=== PATIENT | male | born 1975 | race African-American/Black ===

== ENCOUNTER 2024-04-28 22:51 | Emergency (ER) | payer MEDICAID, SELFPAY ==
--- NOTE | ~2024-04-28 | XR_ITS ---
EXAMINATION: XR CHEST CLINICAL INFORMATION: Status post cardiac arrest COMPARISON: None available. TECHNIQUE: 2 frontal views of the chest with the first at 11:35:50 p.m. on the second at 11:36:39 p.m. FINDINGS: Heart size probably within normal limits given supine nature of the film. Initial film shows a NG tube with its tip at the level of the sharon. An ET tube appears to be place about 7 cm above the sharon. The second radiograph there is no ET tube present in the NG tube has been retracted 1 to 2 cm. There is upper zone redistribution and increased interstitial markings in the upper lobes, left greater than right. No pneumothorax. No large effusions. XR/XR chest 1V IMPRESSION: 1. NG tube with tip at the level of the sharon. 2. Upper zone redistribution and increased interstitial markings in the upper lobes, left greater than right.
--- NOTE | ~2024-04-28 | CT_ITS ---
EXAMINATION: CT HEAD WITHOUT CONTRAST CLINICAL INFORMATION: Altered mental status. Unconscious. COMPARISON: None available. TECHNIQUE: Contiguous axial imaging was performed from the skull base to vertex without intravenous administration of contrast. This CT examination was performed using dose optimization techniques as appropriate, variously including the following: *Automated exposure control *Adjustment of mA and/or kV according to patient size (this includes techniques or standardized protocols for targeted exams where dose is matched to indication/reason for exam; i.e. extremities or head) *Use of iterative reconstruction technique DLP: 801 mGy-cm FINDINGS: Diffuse sulcal effacement is noted. Decrease expected conspicuity of cortical hernández and subcortical white matter noted. The deep hernández matter structures are visualized though with decreased conspicuity from expected visualization. No transforaminal herniation noted. No transtentorial herniation noted. No intracranial hemorrhage or tumors visualized. Bilateral proptosis noted. No significant opacification of the visualized paranasal sinuses, mastoid air cells and middle ear cavities. Partial visualization is made of endotracheal and enteric tubes. 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 Diffuse sulcal effacement is present with diffuse decreased conspicuity of expected hernández-white differentiation. These findings are suspicious for diffuse cerebral edema. No lobar herniation identified. No intracranial hemorrhage. This result was discussed with Fercho Pemberton MD by telephone at 04/29/2024 1:36 AM and it was ascertained that the content and urgency of the report was understood at the time of direct communication.
--- NOTE | ~2024-04-28 | XR_ITS ---
EXAMINATION: XR CHEST CLINICAL INFORMATION: Tube placement COMPARISON: Chest radiograph 04/28/2024 TECHNIQUE: Frontal view of the chest was obtained. FINDINGS: An endotracheal tube terminates 5 cm superior to the sharon. Enteric tube terminates at the gastroesophageal junction. No effusions or pneumothoraces. Mild diffuse vascular indistinctness noted. Mild left base asymmetric airspace opacity is noted. The cardiac silhouette is normal in size. XR/XR chest 1V IMPRESSION: *Endotracheal tube terminating 5 cm superior to the sharon. *Enteric tube terminating at the gastroesophageal junction. *Mild pulmonary vascular congestion. *Mild left upper lung zone asymmetric airspace opacification which may represent asymmetric pulmonary edema. Partial left upper lobe atelectasis could have a similar appearance. This critical result (regarding enteric tube placement) was discussed with Fercho Pemberton MD by telephone at 04/29/2024 2:00 AM and it was ascertained that the content and urgency of the report was understood at the time of direct communication.
[2024-04-28 23:04] VITALS: BP 42/29; PULSE 42
[2024-04-28] MEDS: Norepinephrine Bitartrate/NS 32 MG/250 ML PLAST..BAG IVCONT (23:04)
--- NOTE | 2024-04-28 23:06 | ECG_ITS ---
Test Reason : CARDIAC ARREST Blood Pressure : / mmHG Vent. Rate : 100 BPM Atrial Rate : 100 BPM P-R Int : 120 ms QRS Dur : 190 ms QT Int : 398 ms P-R-T Axes : 000 260 012 degrees QTc Int : 513 ms Sinus rhythm with occasional Premature ventricular complexes Right bundle branch block Abnormal ECG When compared with ECG of 28-APR-2024 22:55, Sinus rhythm has replaced Atrial fibrillation Criteria for Septal infarct are no longer Present Criteria for Lateral infarct are no longer Present Referred By: Fercho Pemberton Electronically Signed By:ISAAC GAFFNEY
--- NOTE | 2024-04-28 23:06 | ED.GENADULT ---
HPI - General Adult General Chief complaint: Cardiac Arrest/CPR Stated complaint: CARDIAC ARREST. DOWN 45 MINS Time Seen by Provider: 04/28/24 23:06 History of Present Illness ED Provider: berna TREVINO narrative: Patient was apparently found by his family unresponsive at home. They had last seen him about 30 minutes prior. He had apparently been complaining about shortness of breath during the day but no other specific symptoms. Fire fighters with the 1st on scene and used an AED which advised to shock. When paramedics arrived the patient was pulseless and in VFib. In route to the hospital the patient received several defibrillations which were refractory. He also received several rounds of epinephrine. The patient was unconscious and unable to give any history. The patient's family arrived at the emergency room. They tell me that he is a smoker and that he may have a history of COPD. He is on no medications. He has not seen a doctor in years. The mother reports that over the past couple of months the patient seems to have had increasing exertional dyspnea. He may have been complaining of shortness of breath earlier today. Related Data Allergies Allergy/AdvReac Type Severity Reaction Status Date / Time amoxicillin [AMOXICILLIN] Allergy Unknown unknown Verified 04/29/24 00:11 acetaminophen [ACETAMINOPHEN] AdvReac Unknown nausea Verified 04/29/24 00:11 Review of Systems Review of Systems: Yes Unobtainable due to mental status PMFSH Social History Social History Advance Directives: No Advance Directives Information Provided: No Physical Exam ED Vital Signs: Vital Signs - 24 hr 04/28/24 23:45 04/29/24 00:04 04/29/24 00:09 Temperature 96.3 F L Pulse Rate 62 76 Respiratory Rate 15 Blood Pressure 93/51 L 147/99 H Pulse Oximetry 99 Oxygen Delivery Method Mechanical Ventilation Fraction of Inspired Oxygen 100 04/29/24 00:15 04/29/24 00:20 04/29/24 00:50 Temperature 96.1 F L Pulse Rate 81 105 H Respiratory Rate 15 Blood Pressure 135/85 150/102 H Pulse Oximetry 99 Oxygen Delivery Method Mechanical Ventilation Fraction of Inspired Oxygen 100 04/29/24 01:08 04/29/24 01:18 04/29/24 01:32 Temperature 97.2 F Pulse Rate 102 H 97 104 H Respiratory Rate 20 Blood Pressure 167/110 H 150/106 H 132/93 H Pulse Oximetry 98 Oxygen Delivery Method Mechanical Ventilation Fraction of Inspired Oxygen BMI result Body Mass Index 25.3 Const Other: The patient arrived receiving CPR by a TEO device. He was flaccid. Pupils were large and nonreactive. HENMT Other: The patient has poor dentition but the airway was clear. No facial asymmetry. Eyes Other: Pupils were large and not very reactive. Neck Other: External jugular veins were prominent. Neck was supple. Resp Other: The patient's breath sounds with bag-valve mask ventilation seemed symmetrical. Cardio Other: The patient initially had no heart tones and no pulses. GI Other: Abdomen seemed soft and nontender. Skin Other: Skin was pale and dry Neuro Other: The patient was unresponsive and flaccid. Pupils were dilated and not significantly responsive. Extrem Other: No peripheral edema or signs of trauma. Medications Administered Generic Name Dose Route Start Last Admin Trade Name Freq PRN Reason Stop Dose Admin Sodium Bicarbonate 150 meq/ 1,000 mls @ 200 mls/hr 04/28/24 23:30 04/28/24 23:36 Dextrose IV 200 mls/hr .Q5H DARION Administration Propofol 1,000 mg in 100 mls @ 0 mls/hr 04/28/24 23:30 04/29/24 01:18 Diprivan IVCONT 50 mcg/kg/min .Q0M DARION 24 mls/hr Titration Protocol Per Protocol Midazolam HCl 50 mg in 50 mls @ 2 mls/hr 04/28/24 23:45 04/29/24 00:50 Versed IVCONT 0 mg/hr .Q24H DARION 0 mls/hr Infusion 2 MG/HR Fentanyl 1,000 mcg in 100 mls @ 0 mls/hr 04/28/24 23:45 04/29/24 00:50 Sublimaze/Ns IVCONT 0 mcg/hr .Q0M DARION 0 mls/hr Titration Protocol Per Protocol Discontinued Medications Generic Name Dose Route Start Last Admin Trade Name Freq PRN Reason Stop Dose Admin Atropine Sulfate 1 mg 04/28/24 23:16 04/29/24 00:26 Atropine Sulfate 1 Mg/10 Ml Syringe IVPUSH 04/28/24 23:17 1 mg ONCE ONE Administration Epinephrine 1 mg 04/28/24 23:16 04/29/24 00:27 Epinephrine 1 Mg/10 Ml Syringe IVPUSH 04/28/24 23:17 1 mg ONCE ONE Administration Midazolam HCl 2 mg 04/29/24 00:17 04/29/24 00:19 Midazolam Hcl/Pf 2 Mg/2 Ml Vial IVPUSH 04/29/24 00:18 2 mg ONCE ONE Administration Procedures Intubation Intubation Type:: Endotracheal Tube Insertion Intubation Date:: 04/28/24 sedative: none Laryngoscope: fiber optic video scope ET Tube Size: 7.5 ET Tube Uncuffed: Yes Tube Secured Location: lips Tube Placement Confirmation: visualized tube passing through cords, equal breath sounds bilaterally and confirmation by capnometry Patient Tolerated Procedure: no complications Intubation Complications: none Additional Comments: ET tube had to be advanced because of placement seen on x-ray. Medical Decision Making Medical Decision Making MDM Narrative: The patient arrived as an [id number] cardiac arrest which was unwitnessed. He had last been seen by family about 30 minutes before he was discovered unresponsive. Family started CPR. First responders had an AED that advised to shock. Paramedics arrived soon after found the patient in VFib. Paramedics administered ACLS care with several attempts at defibrillation and several doses of epinephrine. There was no return of spontaneous circulation prior to arrival in the emergency room. Here the patient has advanced airway device was switched to an ETT. After intubation the patient seemed to have an organized rhythm and pulses. He was hypotensive and bradycardic. He was given atropine and norepinephrine. Initially he lost pulses twice and required additional CPR before his pulses seemed to stabilize. PH was 6.7 any was started on a bicarb drip in addition to the norepinephrine. Ultimately he seemed to be coughing and somewhat bucking the ventilator and so he was given sedation initially with midazolam and fentanyl but later propofol. The norepinephrine had initially been maximized but we were able to cut back on the norepinephrine. The patient's EKGs were bizarre looking and potentially ischemic looking. I suspect that this was probably a primarily cardiac cardiac arrest. I therefore contacted the critical intensive care unit at [facility] and the patient has been accepted in transfer with Dr. Alvarez. The patient's family was here and understands the patient's condition is tenuous. The family understands the patient is being transferred to [facility]. We obtained a CT scan of the brain prior to transfer that shows what may be early signs of hernández-white differentiation consistent with a early anoxic brain injury. I spoke with Dr. Alvarez of the cardiac intensive care unit at [facility]. Lab Data 04/28/24 20:05 04/28/24 20:05 Labs: Lab Results 04/28/24 04/28/24 04/28/24 Range/Units 20:05 23:05 23:13 WBC 12.4 H (4.8-10.8) X10*3/uL RBC 3.99 L (4.60-5.80) X10*6/uL Hgb 12.7 L (14.0-18.0) g/dl Hct 40.2 L (42.0-52.0) % MCV 100.8 H (80.0-98.0) fL MCH 31.8 (27.0-33.0) pg MCHC 31.6 (31.0-36.0) g/dl RDW 13.7 (11.0-16.0) % Plt Count 240 (160-400) X10*3/uL MPV 9.1 L (9.4-12.4) fL Immature Gran % (Auto) Cancelled Neut % (Auto) Cancelled Lymph % (Auto) Cancelled [place] % (Auto) Cancelled Eos % (Auto) Cancelled Baso % (Auto) Cancelled Lymph # (Auto) Cancelled [place] # (Auto) Cancelled Eos # (Auto) Cancelled Baso # (Auto) Cancelled Abs Immat Gran (auto) Cancelled Absolute Neuts (auto) Cancelled Absolute Nucleated RBC 0.020 H (0.0-0.012) X10*3/uL Nucleated RBC % (auto) 0.2 (0.0-0.2) /100WBC Neutrophils % (Manual) 29 L (45-73) % Band Neutrophils % 1 L (3-5) % Lymphocytes % (Manual) 51 H (20-40) % Atypical Lymphs % (Man) 6 (0-6) % Monocytes % (Manual) 5 (2-11) % Eosinophils % (Manual) 4 (0-4) % Metamyelocytes % 3 % Myelocytes % 1 % Abs Neuts (Manual) 3.7 (2.0-8.3) X10*3/uL Lymphocytes # (Manual) 6.3 H (1.2-4.9) X10*3/uL Atyp Lymphs # (Manual) 0.7 x10*3/uL Monocytes # (Manual) 0.6 (0.1-1.2) X10*3/uL Eosinophils # (Manual) 0.5 H (0.0-0.4) X10*3/uL Metamyelocytes # 0.4 X10*3/uL Myelocytes # 0.1 X10*/uL Toxic Vacuolation PRESENT Platelet Estimate NORMAL (NORMAL) Large Platelets PRESENT Plt Morphology Comment NORMAL RBC Morphology NOTED [place] Cells 2+ (3-5) /OIF Hematology Spec Commnt DELAY Hold Purple Top SEE NOTE PT 12.0 (11.1-13.3) SEC INR 1.0 (0.9-1.1) VBG pH 6.72 L* (7.32-7.43) VBG pCO2 99 mmHg VBG pO2 77 mmHg VBG HCO3 13 L (22-26) mmol/L VBG O2 Saturation 74.0 % VBG Base Excess -23.9 mmol/L Sodium 142 (135-145) mmol/L Potassium 3.8 (3.3-5.1) mmol/L Chloride 105 (96-108) mmol/L Carbon Dioxide 16 L (22-29) mmol/L Anion Gap 25 H (12-20) BUN 9 (9-16) mg/dL Creatinine 1.51 H (0.5-1.4) mg/dL Estim Creat Clear Calc TNP Estimated GFR 49 Random Glucose 375 H* (60-115) mg/dL Lactic Acid 13.4 H* (0.5-2.0) mmol/L Calcium 8.3 L (8.4-10.2) mg/dL Magnesium 3.6 H* (1.6-2.6) mg/dL Total Bilirubin 0.1 (0.0-1.0) mg/dL Direct Bilirubin < 0.2 (0.0-0.5) mg/dL AST 178 H (5-37) U/L ALT 242 H (0-40) U/L Alkaline Phosphatase 83 (39-117) U/L Total Creatine Kinase 208 H (38-174) U/L Troponin I High Sens 81.4 H (<3.5-35.0) ng/L B-Natriuretic Peptide 70 (<100) pg/mL Total Protein 5.5 L (6.5-8.0) g/dL Albumin 3.0 L (3.5-5.0) g/dL Lipase 303 H (8-78) U/L Urine Color Urine Appearance Urine pH (5.0-9.0) Ur Specific [place] (1.005-1.025) Urine Protein (Neg-Trace) mg/dL Urine Glucose (UA) (Negative) mg/dL Urine Ketones (Negative) mg/dL Urine Blood (Negative) Urine Nitrite (Negative) Ur Leukocyte Esterase (Negative) Urine RBC (0-2) /HPF Urine WBC (0-5) /HPF Ur Squamous Epith Cells (0-2) /HPF Urine Bacteria (None Seen) Hyaline Casts (0-2) /LPF Urine Opiates Screen (Not Detect) Ur Buprenorphine Scrn (Not Detect) ng/mL Ur Oxycodone Screen (Not Detect) ng/mL Urine Methadone Screen (Not Detect) ng/mL Urine Fentanyl Screen (Not Detect) Ur Barbiturates Screen (Not Detect) Ur Phencyclidine Scrn (Not Detect) Ur Amphetamines Screen (Not Detect) U Benzodiazepines Scrn (Not Detect) Urine Cocaine Screen (Not Detect) U Marijuana (THC) Screen (Not Detect) Ethyl Alcohol 10 mg/dL 04/29/24 Range/Units 00:59 WBC (4.8-10.8) X10*3/uL RBC (4.60-5.80) X10*6/uL Hgb (14.0-18.0) g/dl Hct (42.0-52.0) % MCV (80.0-98.0) fL MCH (27.0-33.0) pg MCHC (31.0-36.0) g/dl RDW (11.0-16.0) % Plt Count (160-400) X10*3/uL MPV (9.4-12.4) fL Immature Gran % (Auto) Neut % (Auto) Lymph % (Auto) [place] % (Auto) Eos % (Auto) Baso % (Auto) Lymph # (Auto) [place] # (Auto) Eos # (Auto) Baso # (Auto) Abs Immat Gran (auto) Absolute Neuts (auto) Absolute Nucleated RBC (0.0-0.012) X10*3/uL Nucleated RBC % (auto) (0.0-0.2) /100WBC Neutrophils % (Manual) (45-73) % Band Neutrophils % (3-5) % Lymphocytes % (Manual) (20-40) % Atypical Lymphs % (Man) (0-6) % Monocytes % (Manual) (2-11) % Eosinophils % (Manual) (0-4) % Metamyelocytes % % Myelocytes % % Abs Neuts (Manual) (2.0-8.3) X10*3/uL Lymphocytes # (Manual) (1.2-4.9) X10*3/uL Atyp Lymphs # (Manual) x10*3/uL Monocytes # (Manual) (0.1-1.2) X10*3/uL Eosinophils # (Manual) (0.0-0.4) X10*3/uL Metamyelocytes # X10*3/uL Myelocytes # X10*/uL Toxic Vacuolation Platelet Estimate (NORMAL) Large Platelets Plt Morphology Comment RBC Morphology Alfred Cells /OIF Hematology Spec Commnt Hold Purple Top PT (11.1-13.3) SEC INR (0.9-1.1) VBG pH (7.32-7.43) VBG pCO2 mmHg VBG pO2 mmHg VBG HCO3 (22-26) mmol/L VBG O2 Saturation % VBG Base Excess mmol/L Sodium (135-145) mmol/L Potassium (3.3-5.1) mmol/L Chloride (96-108) mmol/L Carbon Dioxide (22-29) mmol/L Anion Gap (12-20) BUN (9-16) mg/dL Creatinine (0.5-1.4) mg/dL Estim Creat Clear Calc Estimated GFR Random Glucose (60-115) mg/dL Lactic Acid (0.5-2.0) mmol/L Calcium (8.4-10.2) mg/dL Magnesium (1.6-2.6) mg/dL Total Bilirubin (0.0-1.0) mg/dL Direct Bilirubin (0.0-0.5) mg/dL AST (5-37) U/L ALT (0-40) U/L Alkaline Phosphatase (39-117) U/L Total Creatine Kinase (38-174) U/L Troponin I High Sens (<3.5-35.0) ng/L B-Natriuretic Peptide (<100) pg/mL Total Protein (6.5-8.0) g/dL Albumin (3.5-5.0) g/dL Lipase (8-78) U/L Urine Color Yellow Urine Appearance Clear Urine pH 7.0 (5.0-9.0) Ur Specific [place] 1.010 (1.005-1.025) Urine Protein 300 (3+) H (Neg-Trace) mg/dL Urine Glucose (UA) >=1000 H (Negative) mg/dL Urine Ketones Negative (Negative) mg/dL Urine Blood Large (3+) H (Negative) Urine Nitrite Negative (Negative) Ur Leukocyte Esterase Negative (Negative) Urine RBC 6-10 H (0-2) /HPF Urine WBC 6-10 (0-5) /HPF Ur Squamous Epith Cells 0-2 (0-2) /HPF Urine Bacteria 1+ (None Seen) Hyaline Casts 3-5 (0-2) /LPF Urine Opiates Screen Not Detected (Not Detect) Ur Buprenorphine Scrn Not Detected (Not Detect) ng/mL Ur Oxycodone Screen Not Detected (Not Detect) ng/mL Urine Methadone Screen Not Detected (Not Detect) ng/mL Urine Fentanyl Screen Not Detected (Not Detect) Ur Barbiturates Screen Not Detected (Not Detect) Ur Phencyclidine Scrn Not Detected (Not Detect) Ur Amphetamines Screen Not Detected (Not Detect) U Benzodiazepines Scrn Not Detected (Not Detect) Urine Cocaine Screen POSITIVE H (Not Detect) U Marijuana (THC) Screen POSITIVE H (Not Detect) Ethyl Alcohol mg/dL Critical Care Time Critical Care Time Critical Care Time: Yes Total Critical Care Time: 75 Attestation: The patient was critically ill with a high probability of imminent or life-threatening deterioration. ?I spent greater than 30 minutes of discontinuous time evaluating the patient, delivering critical care at the bedside, discussing evaluating data with consultants. ?Critical care time does not include time spent performing separately billable procedures or teaching. ?Time spent performing critical care with 75 minutes. Discharge Plan Discharge Clinical Impression: Cardiac arrest Patient Disposition: [facility] Transfer Details: [facility] Cardiac Intensive Care unit Print Language: [place]
[2024-04-28 23:09] VITALS: BP 95/57; PULSE 75
[2024-04-28 23:16] VITALS: BP 55/30; PULSE 67
[2024-04-28 23:18] LABS: Hematocrit 40.2 % (42.0-52.0); Hemoglobin 12.7 g/dl (14.0-18.0); Mean Corpuscular HGB Conc 31.6 g/dl (31.0-36.0); Mean Corpuscular Hemoglobin 31.8 pg (27.0-33.0); Mean Corpuscular Volume 100.8 fL (80.0-98.0); Mean Platelet Volume 9.1 fL (9.4-12.4); NRBC Pct Auto 0.2 /100WBC (0.0-0.2); Platelet Count 240 X10*3/uL (160-400); Red Blood Count 3.99 X10*6/uL (4.60-5.80); Red Cell Distribution Width 13.7 % (11.0-16.0); White Blood Count 12.4 X10*3/uL (4.8-10.8)
[2024-04-28 23:22] VITALS: BP 163/115; PULSE 104
[2024-04-28 23:25] VITALS: BP 113/72; PULSE 74
[2024-04-28 23:25] LABS: VBG Base Excess -23.9 mmol/L; VBG HCO3 13 mmol/L (22-26); VBG pCO2 99 mmHg; VBG pH 6.72 (7.32-7.43); VBG pO2 77 mmHg
[2024-04-28 23:32] LABS: Venous Blood Gas Refer to POC result
[2024-04-28 23:33] LABS: Ethanol 10 mg/dL
[2024-04-28] MEDS: Sodium Bicarbonate 8.4% 150 MEQ in Dextrose 5 % 850 ML 200 MEQ IV (23:36)
--- NOTE | 2024-04-28 23:38 | ECG_ITS ---
Test Reason : CARDIAC ARREST Blood Pressure : / mmHG Vent. Rate : 071 BPM Atrial Rate : 071 BPM P-R Int : 108 ms QRS Dur : 168 ms QT Int : 426 ms P-R-T Axes : -25 267 -14 degrees QTc Int : 462 ms Junctional rhythm with Premature ventricular complexes Right bundle branch block Diffuse ST changes- consider ischemia or metabolic derangment. Abnormal ECG When compared with ECG of 28-APR-2024 23:20, QT has shortened Referred By: Fercho Pemberton Electronically Signed By:Carlos Poole
[2024-04-28 23:41] LABS: Delay - Hematology DELAY
[2024-04-28 23:43] LABS: Troponin-I High Sensitivity 81.4 ng/L (<3.5-35.0)
[2024-04-28 23:45] VITALS: BP 93/51; PULSE 62
[2024-04-28] MEDS: Midazolam HCl/NS 50 MG/50 ML PLAST..BAG IVCONT (23:45)
[2024-04-28] MEDS: fentaNYL citrate/NS 1,000 MCG/100 ML PLAST..BAG 2.5 MCG IVCONT (23:47)
[2024-04-28 23:49] LABS: Alanine Aminotransferase 242 U/L (0-40); Alkaline Phosphatase 83 U/L (39-117); Anion Gap 25 (12-20); Aspartate Amino Transferase 178 U/L (5-37); Bilirubin Direct < 0.2 mg/dL (0.0-0.5); Bilirubin Total 0.1 mg/dL (0.0-1.0); Blood Urea Nitrogen 9 mg/dL (9-16); Calcium 8.3 mg/dL (8.4-10.2); Carbon Dioxide 16 mmol/L (22-29); Chloride 105 mmol/L (96-108); Estimated Glomerular Filt Rate 49; Glucose Random 375 mg/dL (60-115); Lipase 303 U/L (8-78); Magnesium 3.6 mg/dL (1.6-2.6); Potassium 3.8 mmol/L (3.3-5.1); Sodium 142 mmol/L (135-145); Total Protein 5.5 g/dL (6.5-8.0)
[2024-04-28 23:50] LABS: Lactic Acid 13.4 mmol/L (0.5-2.0)
[2024-04-29] VITALS (12 sets, daily range): BP systolic 52–182; BP diastolic 26–110; PULSE 66–111; RESP 15–20; TEMP 35.6–36.4; O2SAT 98–99; BMI 29.4; BMI 25.3
--- NOTE | 2024-04-29 00:05 | PC.NURSE ---
0002- NG TUBE PLACED, PLACEMENT CONFIRMED BY 2 RN AUSCULTATION. MD AWARE FOR NEED FOR XR. 0004 NOREPI DRIP TITRATE TO 0.1MCG/KG/MIN. VITALS DOCUMENTED.
[2024-04-29] MEDS: Midazolam HCl/PF 2 MG/2 ML VIAL IVPUSH (00:19)
--- NOTE | 2024-04-29 00:19 | PC.NURSE ---
2MG IVP VERSED GIVEN PT CONTINUES TO TYLER VENT.
[2024-04-29] MEDS: Atropine Sulfate 1 MG/10 ML SYRINGE IVPUSH (00:26)
[2024-04-29] MEDS: EPINEPHrine 1 MG/10 ML SYRINGE IVPUSH (00:27)
[2024-04-29 00:32] LABS: Atypical Lymph Absolute Manual 0.7 x10*3/uL; Atypical Lymphs Percent Manual 6 % (0-6); Band Neutrophils Percent 1 % (3-5); Eosinophils Absolute Manual 0.5 X10*3/uL (0.0-0.4); Eosinophils Percent Manual 4 % (0-4); Lymphocytes Absolute Manual 6.3 X10*3/uL (1.2-4.9); Lymphocytes Percent Manual 51 % (20-40); Metamyelocytes Absolute 0.4 X10*3/uL; Metamyelocytes Percent 3 %; Monocytes Absolute Manual 0.6 X10*3/uL (0.1-1.2); Monocytes Percent Manual 5 % (2-11); Myelocytes Absolute 0.1 X10*/uL; Myelocytes Percent 1 %; Neutrophils Absolute Manual 3.7 X10*3/uL (2.0-8.3); Neutrophils Percent Manual 29 % (45-73); RBC Morphology NOTED
[2024-04-29 00:33] LABS: Large Platelet PRESENT; Platelet Estimate NORMAL (NORMAL); Platelet Morphology Comment NORMAL; Toxic Vacuolation PRESENT
[2024-04-29 00:34] LABS: Burr Cells 2+ (3-5) /OIF
[2024-04-29 00:36] LABS: B Type Natriuretic Peptide 70 pg/mL (<100)
[2024-04-29] MEDS: propofoL 1,000 MG/100 ML VIAL 14.4 MG IVCONT (00:50)
[2024-04-29 01:05] LABS: Appearance Urine Clear; Color Urine Yellow; Glucose Urine UA >=1000 mg/dL (Negative); Leukocyte Esterase Urine Negative (Negative); Nitrite Urine Negative (Negative); UMIC TRIGGER UACC YES; Urine Blood Large (3+) (Negative); Urine Ketones Negative (Negative); Urine Protein 300 (3+) mg/dL (Neg-Trace)
[2024-04-29 01:13] LABS: Reflex Lactate? Lactic Acid Added
[2024-04-29 01:14] LABS: Bacteria Urine 1+ (None Seen); Squamous Epithelial Cell Urine 0-2 /HPF (0-2); UACC Culture Trigger YES
[2024-04-29 01:19] LABS: Amphetamine Screen Urine Not Detected (Not Detect); Barbiturates, Urine Not Detected (Not Detect); Benzodiazepines Screen Urine Not Detected (Not Detect); Buprenorphine Scr Not Detected (Not Detect); Cannabinoid Screen Urine POSITIVE (Not Detect); Cocaine Screen Urine POSITIVE (Not Detect); Fentanyl, urine Not Detected (Not Detect); Methadone Screen, Urine Not Detected (Not Detect); Opiate Screen Urine Not Detected (Not Detect); Oxycodone Screen Urine Not Detected (Not Detect); Phencyclidine Screen Urine Not Detected (Not Detect)
--- NOTE | 2024-04-29 01:25 | PC.NURSE ---
2304 norepi drip started per protocol at 0.05mcg/kg/min vitals 42 HR 42/29 BP 2309 norepi drip increased to 0.11mcg/kg/min per MD vitals 75 HR 95/57 BP 2316 norepi drip increased to 0.13mcg/kg/min vitals 67 HR 55/30 BP. 2322 norepi drip decreased to 0.10mcg/kg/min vitals 104 HR 163/115 BP 2325 norepi drip decreased to 0.07mcg/kg/min vitals 74 113/72 BP time not documented - norepi drip increased to 0.2mcg/kg/min by MD at bedside. 0004 NOREPI DRIP decreased TO 0.1MCG/KG/MIN. vitals 76 HR 147/99 BP 0029 norepi drip decreased to 0.07mcg/kg/min vitals 105 HR 182/110 BP 0041 norepi drip decreased to 0.05mcg/kg/min vitals 111 HR 169/107 BP
--- NOTE | 2024-04-29 01:30 | PC.NURSE ---
propofol maxed out at 50 mcg/kg/min per dec. appropriate sedation RASS score reached. pt no longer bucking vent.
[2024-04-29 01:55] LABS: VBG Base Excess -6.1 mmol/L; VBG HCO3 20 mmol/L (22-26); VBG pCO2 45 mmHg; VBG pH 7.27 (7.32-7.43); VBG pO2 54 mmHg
[2024-04-29 01:59] LABS: Venous Blood Gas Refer to POC result
[2024-04-29 02:09] LABS: ~Lactic Acid-LAB USE ONLY 4.1 mmol/L (0.5-2.0)
[2024-04-29 02:15] LABS: Alanine Aminotransferase 564 U/L (0-40); Albumin Level 3.9 g/dL (3.5-5.0); Alkaline Phosphatase 117 U/L (39-117); Anion Gap 15 (12-20); Aspartate Amino Transferase 619 U/L (5-37); Bilirubin Direct 0.1 mg/dL (0.0-0.5); Bilirubin Total 0.3 mg/dL (0.0-1.0); Blood Urea Nitrogen 12 mg/dL (9-16); Calcium 8.7 mg/dL (8.4-10.2); Carbon Dioxide 22 mmol/L (22-29); Chloride 104 mmol/L (96-108); Creatinine Clr Calc Pharmacy 57.1; Estimated Glomerular Filt Rate 46; Glucose Random 390 mg/dL (60-115); Potassium 5.2 mmol/L (3.3-5.1); Sodium 136 mmol/L (135-145)
--- NOTE | 2024-04-29 02:30 | PC.NURSE ---
report given to [facility] RN and nanette ems. pt being transferred at this time.
--- NOTE | 2024-04-29 02:53 | PC.NURSE ---
critical trop level called to at 23,000; called [facility] at [phone] to notify of lab value.
--- NOTE | 2024-04-29 03:11 | PC.NURSE ---
late entry d/t patient care initial weight estimated by staff during code on pt arrival. real weight obtained via bedscale and updated in chart prior to starting sedation medications. medications administered per pt actual weight.
--- NOTE | 2024-04-29 03:41 | PC.NURSE ---
fetanyl wasted in pyxis with RN. midazolam taken by [facility] staff.
[2024-04-29 03:49] LABS: Reflex Lactate? 2 Y
[2024-04-29 05:53] LABS: Glucose, Whole Blood 342 mg/dL (60-115)
[2024-04-29 09:21] LABS: Glucose, Whole Blood 236 mg/dL (60-115)
== END 2024-04-29 02:37 | disposition short-term general hospital (02) ==
PROVIDERS: Emergency Provider Emergency Medicine
DX: I46.9 Cardiac arrest, cause unspecified (principal); R06.02 Shortness of breath; J44.9 Chronic obstructive pulmonary disease, unspecified; F17.200 Nicotine dependence, unspecified, uncomplicated
CPT/HCPCS: 36415; 70450; 71045; 80048; 80076; 80307; 81001; 82550; 82803; 82947; 83605; 83690; 83735; 83880; 84484; 85007; 85027; 85610; 87086; 93005; 94002; 96365; 96366; 96375; 99285; 99291; 99292; J0171; J0461; J2250; J2251; J2704; J3010

== ENCOUNTER → 2024-04-28 23:06 | Outpatient (BNV) | payer MEDICAID, SELFPAY | PROVIDERS: Emergency Provider Emergency Medicine; Visit Provider Internal Medicine | DX: R94.31 Abnormal electrocardiogram [ECG] [EKG] (principal) | CPT/HCPCS: 93010 ==